=== PATIENT | female | born 1950 | race Caucasian/White ===

== ENCOUNTER 2021-08-09 01:50 | Inpatient (IN) | payer MEDICARE ==
[2021-08-09 02:36] LABS: #Basophils 0.1 thou/uL (0.0-0.2); #Eosinphils 0.3 thou/uL (0.0-0.7); #Lymphocytes 2.7 thou/uL (1.20-3.40); #Monocytes 0.6 thou/uL (0.11-0.59); #Neutrophils 8.2 thou/uL (1.40-6.50); %Basophils 0.7 % (0.0-1.0); %Eosinophils 2.6 % (0.0-10.0); %Lymphocytes 22.6 % (21.0-51.0); %Monocytes 5.1 % (0.0-10.0); %Neutrophils 69.1 % (42.0-75.0); Hemoglobin 11.3 g/dL (12.0-16.0); Mean Corpuscular HGB CONC 34.8 g/dL (32.0-36.0); Mean Corpuscular Volume 94.7 fL (78.0-98.0); Platelet Count 265 thou/uL (130-400); RBC Distribution Width 11.7 % (11.5-14.5); Red Blood Cell (RBC) Count 3.43 mill/uL (4.20-5.40); White Blood Cell (WBC) Count 11.9 thou/uL (4.8-10.8)
[2021-08-09] MEDS ORDERED: Vancomycin 1 GM/200 ML BAG ONE (03:18)
[2021-08-09] MEDS ORDERED: Ondansetron PF 4 MG/2 ML Vial IVP PRN (05:40)
[2021-08-09] MEDS ORDERED: Ondansetron ODT 4 MG TAB PO PRN (05:40)
[2021-08-09] MEDS ORDERED: Acetaminophen 650 MG Suppository PR PRN (05:40)
[2021-08-09 05:51] VITALS: BMI 24.6
[2021-08-09] MEDS: Acetaminophen 325 MG TAB PO PRN ×2 (06:14→21:32)
[2021-08-09] MEDS ORDERED: FLU VACC QS2021-22(65YR UP)/PF 240 MCG/0.7 ML SYRINGE IM ONE (07:15)
[2021-08-09] MEDS: Morphine 4 MG/ML VIAL SLOW IVP PRN ×3 (09:04→19:57)
[2021-08-09] MEDS ORDERED: Electrolyte Replacement Protocol 1 EACH FS SCH (11:00)
[2021-08-09 14:15] LABS: SARS-CoV-2 PCR by NAA Not Detected (NotDetected)
[2021-08-09] MEDS: Ipratropium Bromide 0.06% Nasal Inhaler 15ml EA NARE SCH ×2 (14:53→19:56)
[2021-08-09] MEDS: traZODone HCl 150 MG TAB PO SCH (19:57)
[2021-08-10] MEDS: Morphine 4 MG/ML VIAL SLOW IVP PRN ×4 (01:12→14:56)
[2021-08-10 07:11] LABS: #Basophils 0.1 thou/uL (0.0-0.2); #Eosinphils 0.4 thou/uL (0.0-0.7); #Lymphocytes 2.6 thou/uL (1.20-3.40); #Monocytes 0.4 thou/uL (0.11-0.59); #Neutrophils 5.1 thou/uL (1.40-6.50); %Basophils 0.9 % (0.0-1.0); %Eosinophils 4.5 % (0.0-10.0); %Lymphocytes 30.4 % (21.0-51.0); %Monocytes 5.1 % (0.0-10.0); %Neutrophils 59.1 % (42.0-75.0); Hemoglobin 11.6 g/dL (12.0-16.0); Mean Corpuscular HGB CONC 33.2 g/dL (32.0-36.0); Mean Corpuscular Hemoglobin 32.5 pg (27.0-31.0); Mean Corpuscular Volume 97.9 fL (78.0-98.0); Mean Platelet Volume 6.9 fL (7.4-10.4); Platelet Count 268 thou/uL (130-400); Red Blood Cell (RBC) Count 3.56 mill/uL (4.20-5.40); White Blood Cell (WBC) Count 8.7 thou/uL (4.8-10.8)
[2021-08-10 07:16] LABS: Anion Gap 12 mmol/L (10-20); BUN (Urea Nitrogen) 11 mg/dL (9.8-20.1); Calc. Creatinine Clearance 54 mL/min (70-130); Calcium 9.7 mg/dL (7.8-10.44); Carbon Dioxide 29 mmol/L (23-31); Chloride 103 mmol/L (98-107); Glucose 101 mg/dL (83-110); Sodium 140 mmol/L (136-145)
[2021-08-10] MEDS: CeleCOXIB 100 MG CAP PO SCH (08:26)
[2021-08-10] MEDS: Aspirin 81 mg Enteric Coated Tablet PO SCH (08:27)
[2021-08-10] MEDS: Atorvastatin Calcium 20 MG TAB PO SCH (08:27)
[2021-08-10] MEDS: Lisinopril 20 MG TAB PO SCH (08:27)
[2021-08-10] MEDS: Ipratropium Bromide 0.06% Nasal Inhaler 15ml EA NARE SCH ×3 (08:42→20:25)
[2021-08-10] MEDS ORDERED: Cyclobenzaprine 10 MG TAB PO PRN (16:22)
[2021-08-10] MEDS ORDERED: Gabapentin 100 MG CAP PO SCH (16:30)
[2021-08-10] MEDS: traZODone HCl 150 MG TAB PO SCH (20:25)
[2021-08-10] MEDS: Acetaminophen 325 MG TAB PO PRN (23:49)
[2021-08-11] MEDS: Atorvastatin Calcium 20 MG TAB PO SCH (08:35)
[2021-08-11] MEDS: Aspirin 81 mg Enteric Coated Tablet PO SCH (08:35)
[2021-08-11] MEDS: Lisinopril 20 MG TAB PO SCH (08:35)
[2021-08-11] MEDS: CeleCOXIB 100 MG CAP PO SCH (08:35)
[2021-08-11] MEDS: Ipratropium Bromide 0.06% Nasal Inhaler 15ml EA NARE SCH (08:37)
[2021-08-11 08:48] VITALS: BP 160/67; TEMP 98.3
== END 2021-08-11 11:15 | disposition home or self-care (01) | DRG 552 ==
LOC: ERS 01:50 → MSONC 04:16 → OBSVTOIN 08-11 08:20
PROVIDERS: ADMIT Student in an Organized Health Care Education/Training Program; ATTEND Internal Medicine
DX: M47.816 Spondylosis without myelopathy or radiculopathy, lumbar region (principal); Z20.822 Contact with and (suspected) exposure to COVID-19; M48.061 Spinal stenosis, lumbar region without neurogenic claudication; I25.10 Atherosclerotic heart disease of native coronary artery without angina pectoris; K21.9 Gastro-esophageal reflux disease without esophagitis; E78.5 Hyperlipidemia, unspecified; J44.9 Chronic obstructive pulmonary disease, unspecified; M19.90 Unspecified osteoarthritis, unspecified site; D64.9 Anemia, unspecified; M25.551 Pain in right hip; Z85.118 Personal history of other malignant neoplasm of bronchus and lung; Z90.2 Acquired absence of lung [part of]; Z88.5 Allergy status to narcotic agent; Z87.891 Personal history of nicotine dependence
CPT/HCPCS: 36415; 72148; 80048; 85025; 86140; 87040; 96365; 96366; 96375; 96376; G0378; J2270; J3370; U0003; U0005

== ENCOUNTER 2023-11-17 15:13 | Outpatient (CLI) | payer MEDICARE | END 2023-11-17 15:14 | disposition home or self-care (01) | LOC: BICRAD 15:13 | PROVIDERS: ATTEND Family Medicine | DX: Z85.118 Personal history of other malignant neoplasm of bronchus and lung (principal) | CPT/HCPCS: 71046 ==

== ENCOUNTER 2025-07-12 11:28 | Outpatient (CLI) | payer MEDICARE | END 2025-07-12 11:29 | disposition home or self-care (01) | LOC: RAD 11:28 | PROVIDERS: ATTEND Nurse Practitioner Family | DX: R00.0 Tachycardia, unspecified (principal); J84.89 Other specified interstitial pulmonary diseases | CPT/HCPCS: 36415; 71046; 84439; 84443; 84481; 85025 ==

== ENCOUNTER 2025-08-27 13:14 | Outpatient (CLI) | payer MEDICARE | END 2025-08-27 13:15 | disposition home or self-care (01) | LOC: CT 13:14 | PROVIDERS: ATTEND Nurse Practitioner Family | DX: R06.02 Shortness of breath (principal); R91.8 Other nonspecific abnormal finding of lung field; E04.1 Nontoxic single thyroid nodule; R59.0 Localized enlarged lymph nodes; J98.4 Other disorders of lung | CPT/HCPCS: 71270 ==